=== PATIENT | female | born 1995 | race Caucasian/White ===

== ENCOUNTER 2018-03-27 08:04 | Inpatient (IN) | END 2018-03-29 21:50 | disposition home or self-care (01) | DRG 769 ==

== ENCOUNTER 2018-03-31 12:02 | Emergency (ER) | END 2018-03-31 13:05 | disposition home or self-care (01) ==

== ENCOUNTER 2018-09-03 05:55 | Inpatient (IN) | payer OTHER ==
[~2018-09-03] VITALS: Ht 154.9 cm; Wt 76.6 kg
[~2018-09-03 05:55] MED LIST: PREN-19 PO
[2018-09-03] MEDS ORDERED: LACTATED RINGER'S 1,000 ML IV SCH (06:55)
[2018-09-03 06:56] VITALS: Ht 154.9 cm; Wt 76.6 kg
[2018-09-03] MEDS ORDERED: CARBOPROST 250 MCG INJ IM PRN ×2 (07:00→07:30)
[2018-09-03] MEDS ORDERED: BUTORPHANOL 2 MG INJ IV PRN ×2 (07:00→07:30)
[2018-09-03] MEDS ORDERED: LIDOCAINE 1% (MPF) 30 ML INJ INJ PRN ×2 (07:00→07:30)
[2018-09-03] MEDS ORDERED: METHYLERGONOVINE 0.2 MG INJ IM PRN ×2 (07:00→07:30)
[2018-09-03] MEDS ORDERED: OXYTOCIN 30 UNITS/LR 500 ML IV SCH ×4 (07:00→07:30)
[2018-09-03] MEDS ORDERED: MISOPROSTOL 200 MCG TAB PR PRN ×2 (07:00→07:30)
[2018-09-03] MEDS ORDERED: OXYTOCIN 30 UNITS/LR 500 ML IV PRN ×2 (07:00→07:30)
[2018-09-03] MEDS ORDERED: IBUPROFEN 600 MG TAB PO PRN ×2 (07:00→07:30)
[2018-09-03] MEDS: LACTATED RINGER'S 1,000 ML IV SCH ×3 (07:21→20:36)
[2018-09-03] MEDS: MISOPROSTOL 50 MCG CAPSULE PO SCH ×3 (10:10→20:36)
--- NOTE | 2018-09-03 22:20 | HP ---
Date/Time of Note Date/Time of Note DATE: 09/03/18 TIME: 22:17 OB - History Hx of Present Free Text/Dictation 22-year-old 2 para 0010 with single intrauterine at 39 weeks and 6 days with a MARYANN of 09/04/2018 was admitted last night for induction of labor by her primary OB. She states good movement. She denies nausea, vomiting, shortness of breath, chest pain, headache, visual changes, vaginal bleeding or LOF. Estimated Due Date: Sep 04, 2018 : 2 Para: 0 Spontaneous : 1 Therapeutic : 0 Care: Good Care Ultrasounds: Normal mid trimester US Obstetrical Complications: None Medical Complications: Musculoskeletal Past Family/Social History * Past Medical, Surgical, Family and Obstetric Histories reviewed from [facility]. Blood Type: O+ Rubella: immune RPR/VDRL: Negative GBS Status: Negative HBsAG: Negative OB Admission Exam Vital Signs Vital Signs Blood pressure 110/67, pulse rate 70/minutes, respiratory rate 16/minutes, temperature 98.6 Physical Exam HEENT: WNL Heart: Rhythm Normal Lungs: Clear Abdomen: WNL Extremities: Normal Cervical Dilatation: 1cm Effacement: 50% Station: -2 Membranes: Intact Heart Rate: 130's Accelerations: Accelerations Present Decelerations: No Decelerations Varibility: Moderate Contractions on Admission: 6-10 Minutes Apart Intensity: Mild Last 72 hours Lab Results CBC & BMP 09/03/18 07:00 OB Assessment/Plan Other plan: 22 years old 2 para 0010 with single intrauterine at 39 weeks and 6 days was admitted for induction of labor last night. She has received 2 dose of Cytotec. Will continue Cytotec per protocol. - FHR: No sign of metabolic acidosis- Category I - Continuous EFM, toco - CBC, blood type and screen as noted above - Analgesia options with R/B/A discussed in detail with patient - Epidural per patient request - Please see the orders - O+/Rubella: Immune - GBS: Negative Admission, procedures, expectations, risks and possible complications have been discussed in detail with the patient. Risk of vaginal delivery including but not limited to bleeding, infection, cervical laceration, placental retention, injury to fetus, blood transfusion, blood transfusion related infection, risk of anesthesia, adhesion, cervical laceration, episiotomy/laceration, possible delivery with risk of bleeding, infection, injury to other organs (bowel, bladder, ureter, vessels, nerves), injury to fetus, blood transfusion, blood transfusion related infection, risk of anesthesia, scar and hernia formation, needs for future , removal of uterus or any other indicated surgery discussed with the patient. She expressed understanding and repeats the risks. All of her questions were answered. She signed the informed consent. PHYSICIAN'S VERIFICATION OF INFORMED CONSENT The patient was counseled regarding the procedure, its indications, risks, potential complications and alternatives and any questions were answered. Consent was obtained. PLANNED PROCEDURE/TREATMENT: Vaginal delivery, episiotomy, repair of laceration possible delivery DAVID NUÑEZ Sep 03, 2018 22:20
--- NOTE | 2018-09-03 22:38 | PREAC ---
Date/Time of Note Date/Time of Note DATE: 09/03/18 TIME: 22:37 Anesthesia Eval and Record Evaluation Time Pre-Procedure Interview DATE: 09/03/18 TIME: 22:37 Age 22 Sex female NPO: 8 hrs Preoperative diagnosis iup at 39 weeks Planned procedure labor epidural Past Medical History Past Medical History: None Surgery & Anesthesia Issues No known issue Meds Anticoagulation: No Beta Faby within 24 hr: No Reason Beta Faby not given: Pt. not on B-Faby Reported Medications Vit #76/Iron,Carb/FA (Prenatabs Rx Tablet) 1 Each Tablet, 1 EACH PO D AILY, TAB 03/27/18 Current Medications Lactated Ringer's 1,000 ml @ 125 mls/hr Q8H IV Last administered on 09/03/18at 20:36; Admin Dose 125 MLS/HR; Start 09/03/18 at 07:30 Butorphanol Tartrate (Stadol) 2 mg Q2H PRN IV .PAIN Last administered on 09/03/18at 21:26; Admin Dose 2 MG; Start 09/03/18 at 07:30 Lidocaine (Xylocaine 1% (Mpf)) 30 ml ONCE PRN INJ .EPISIOTOMY; Start 09/03/18 at 07:30 Oxytocin/Lactated Ringer's 500 ml @ 500 mls/hr ONCE POST IV ; Start 09/03/18 at 07:30 Oxytocin/Lactated Ringer's 500 ml @ 125 mls/hr POST IV ; Start 09/03/18 at 07:30 Ibuprofen (Motrin) 600 mg ONCE PRN PO .PAIN 1-5; Start 09/03/18 at 07:30 Oxytocin/Lactated Ringer's 500 ml @ 0 mls/hr ONCE PRN IV .VAGINAL BLEEDING; Start 09/03/18 at 07:30 Methylergonovine Maleate (Methergine) 0.2 mg ONCE PRN IM .VAGINAL BLEEDING; Start 09/03/18 at 07:30 Carboprost Tromethamine (Hemabate) 250 mcg ONCE PRN IM .VAGINAL BLEEDING; Start 09/03/18 at 07:30 Misoprostol (Cytotec) 1,000 mcg ONCE PRN IL .VAGINAL BLEEDING; Start 09/03/18 at 07:30 Misoprostol (Cytotec 50 Mcg Capsule) 50 mcg Q4 PO Last administered on 09/03/18at 20:36; Admin Dose 50 MCG; Start 09/03/18 at 10:00 Meds reviewed: Yes Allergies Coded Allergies: No Known Allergies (Verified Allergy, Unknown, 03/27/18) Allergies Reviewed: Yes Labs/Studies Labs Reviewed: Reviewed by anesthesiologist Result Diagram: 09/03/18 0700 Laboratory Tests 09/03/18 07:00 Blood Bank Test 09/03/18 07:00 Antibody Screen NEGATIVE Blood Type O POSITIVE Rh Immune Globulin Candidate NO test: Positive Pre-procedure Exam Airway: Adequate mouth opening, Adequate thyromental dist Mallampati: Mallampati I Teeth: Normal Lung: Normal Heart: Normal ASA Physical Status ASA physical status: 2 Emergency: None Planned Anesthetic Neuraxial: Epidural Planned Pain Management Parenteral pain med Pre-operative Attestations Prior to commencing anesthesia and surgery, the patient was re-evaluated, there was verification of: *The patient's identity *The results of appropriate recent lab work and preoperative vital signs *The above evaluation not changing prior to induction *Anesthetic plan, risk benefits, alternative and complications discussed with patient/family; questions answered; patient/family understands, accepts and wishes to proceed. AMANDA IGLESIAS Sep 03, 2018 22:38
[2018-09-03] MEDS ORDERED: FENTAnyl 2MCG/ML-ROPIV 0.2% 100 ML ONE (22:39)
[2018-09-03] MEDS ORDERED: ONDANSETRON 4 MG INJ IV PRN (23:00)
[2018-09-03] MEDS ORDERED: DIPHENHYDRAMINE 50 MG INJ IV PRN (23:00)
[2018-09-03] MEDS ORDERED: NALOXONE (0.4 MG/ML) INJ IV PRN (23:00)
[2018-09-04] MEDS: LACTATED RINGER'S 1,000 ML IV SCH ×4 (00:05→20:04)
[2018-09-04] MEDS ORDERED: OXYTOCIN 30 UNITS/LR 500 ML IV SCH (01:30)
--- NOTE | 2018-09-04 08:21 | PAC ---
Date/Time of Note Date/Time of Note DATE: 09/04/18 TIME: 08:21 Post-Anesthesia Notes Post-Anesthesia Note Last documented vital signs temp 97.8 bp 116/76 p 76 Activity: WNL Respiratory function: WNL Cardiovascular function: WNL Mental status: Baseline Pain reasonably controlled: Yes Hydration appropriate: Yes Nausea/Vomiting absent: Yes AMANDA IGLESIAS Sep 04, 2018 08:21
[2018-09-04] MEDS: FENTAnyl 2MCG/ML-ROPIV 0.2% 100 ML BAG EPI SCH ×2 (09:08→18:06)
[2018-09-04] MEDS ORDERED: GENTAMICIN 120 MG/NS (PMX) 100 ML IVPB SCH (17:00)
[2018-09-04] MEDS ORDERED: AMPICILLIN 2 GM/NS (PMX) 100 ML IVPB ONE (17:00)
[2018-09-04] MEDS: ACETAMINOPHEN 325 MG TAB PO PRN (17:03)
[2018-09-04] MEDS: MISOPROSTOL 50 MCG CAPSULE PO SCH ×5 (20:04→21:00)
[2018-09-04] MEDS: AMPICILLIN 1 GM/NS (PMX) 50 ML IVPB SCH (21:14)
[2018-09-05] MEDS: FENTAnyl 2MCG/ML-ROPIV 0.2% 100 ML BAG EPI SCH (00:40)
[2018-09-05] MEDS: MISOPROSTOL 50 MCG CAPSULE PO SCH ×2 (01:00→05:00)
[2018-09-05] MEDS: AMPICILLIN 1 GM/NS (PMX) 50 ML IVPB SCH (01:11)
[2018-09-05] MEDS: ACETAMINOPHEN 325 MG TAB PO PRN (01:30)
[2018-09-05] MEDS: LACTATED RINGER'S 1,000 ML IV SCH (02:35)
[2018-09-05] MEDS ORDERED: MINERAL OIL LIGHT 10 ML VIAL TOP ONE (03:30)
[2018-09-05] MEDS: LACTATED RINGER'S 1,000 ML IV* SCH ×3 (05:38→21:38)
[2018-09-05] MEDS ORDERED: NA PHOSPHATE/BIPHOS 133 ML ENEMA PR PRN (06:00)
[2018-09-05] MEDS ORDERED: HYDROCODONE/APAP (5/325) TAB PO PRN ×2 (06:00)
[2018-09-05] MEDS ORDERED: BENZOCAINE 20% 56 ML SPRAY TOP PRN (06:00)
[2018-09-05] MEDS ORDERED: ONDANSETRON 4 MG INJ IV PRN (06:00)
[2018-09-05] MEDS ORDERED: DIPHENHYDRAMINE 50 MG INJ IV PRN (06:00)
[2018-09-05] MEDS ORDERED: MISOPROSTOL 200 MCG TAB PR PRN (06:00)
[2018-09-05] MEDS ORDERED: CARBOPROST 250 MCG INJ IM PRN (06:00)
[2018-09-05] MEDS ORDERED: DIPHENHYDRAMINE 25 MG CAP PO PRN (06:00)
[2018-09-05] MEDS ORDERED: DIBUCAINE 1% 30 GM OINT TOP PRN (06:00)
[2018-09-05] MEDS: IBUPROFEN 600 MG TAB PO SCH ×4 (06:00→23:32)
[2018-09-05] MEDS ORDERED: SENNA/DOCUSATE NA (8.6MG/50MG) TAB PO PRN (06:00)
[2018-09-05] MEDS ORDERED: MAGNESIUM HYDROXIDE 30ML CUP PO PRN (06:00)
[2018-09-05] MEDS ORDERED: OXYTOCIN 30 UNITS/LR 500 ML IV PRN (06:00)
[2018-09-05] MEDS ORDERED: ONDANSETRON 4 MG TAB PO PRN (06:00)
[2018-09-05] MEDS ORDERED: LANOLIN HPA 1 PKT TOP PRN (06:00)
--- NOTE | 2018-09-05 06:00 | LDN ---
Date/Time of Note Date/Time of Note DATE: 09/05/18 TIME: 05:48 Delivery Summary I was back up to Laborist. Laborist needed to perform delivery on a different patient.I was called to come and assist in delivery. While the delivery was in progress, RN requested a physician to go out of operating room and attend delivery for Blanca Crespo. I left the operating. Blanca was very close to . a few minutes later she delivered a viable female infant. APGARS not available to me yet. there was thick meconium. we already had the RN & cook relief & RT in the room. Immediately after I clamped and cut the cord. baby was placed on the warmer by RN. A piece of cord was double clampe d and sent for cord gasses. Vein (PH 7.256 with BE -5) & Artery (PH 7.35 with BE -4.7). Poor respiratory effort was noted and Code APGARS called. Bowling Ball Weigher And Packer was summoned. baby intubated to NICU. Placenta delivered spontaneously and intact small first degree vaginal laceration was repaired with 3-0 Vicryl. Perineum was intact EBL 300 ml Episiotomy: No Anesthesia type: Epidural Estimated blood loss: 300 Sponge & Needle done & correct: Yes All needle counts correct: Yes Any foreign bodies felt in the: No Delivery Information Sex Infant Sex: female Suctioning Nose & mouth suctioned at cyndee: No Umbilical Cord Umbilical cord with: 3 Vessels Cord presentations: no nuchal cord Nuchal cord present X: 0 Cord Blood was obtained: Yes Mother & Baby Disposition Disposition Mom transferred to: Other () Baby to NICU: Yes KARIN LIND MD Sep 05, 2018 05:58
[2018-09-05] MEDS: AMPICILLIN 2 GM/NS (PMX) 100 ML IVPB SCH ×3 (06:19→17:30)
[2018-09-05] MEDS: GENTAMICIN 120 MG/NS (PMX) 100 ML IVPB SCH ×3 (07:42→22:56)
[2018-09-05] MEDS: SENNA/DOCUSATE NA (8.6MG/50MG) TAB PO SCH ×2 (09:00→20:48)
[2018-09-05 11:11] VITALS: BP 91/53; PULSE 89; RESP 19
[2018-09-05 13:45] VITALS: BP 114/70; PULSE 90; RESP 18
[2018-09-05] MEDS: WITCH HAZEL/GLYCERIN PAD PR PRN (14:55)
[2018-09-05 15:28] VITALS: BP 121/64; PULSE 85; RESP 18
[2018-09-05 19:30] VITALS: BP 105/52; PULSE 95; RESP 18
[2018-09-06 01:00] VITALS: BP 108/65; PULSE 75; RESP 18
[2018-09-06] MEDS: AMPICILLIN 2 GM/NS (PMX) 100 ML IVPB SCH ×2 (01:34→06:41)
[2018-09-06 04:15] VITALS: BP 113/72; PULSE 80; RESP 18
[2018-09-06] MEDS: IBUPROFEN 600 MG TAB PO SCH ×3 (05:35→18:17)
[2018-09-06] MEDS: GENTAMICIN 120 MG/NS (PMX) 100 ML IVPB SCH (05:35)
[2018-09-06 08:00] VITALS: BP 97/52; PULSE 83; RESP 16
[2018-09-06] MEDS: SENNA/DOCUSATE NA (8.6MG/50MG) TAB PO SCH ×2 (09:17→21:00)
[2018-09-06] MEDS: WITCH HAZEL/GLYCERIN PAD PR PRN (14:41)
[2018-09-06 16:00] VITALS: BP 115/78; RESP 16
[2018-09-07] MEDS: IBUPROFEN 600 MG TAB PO SCH ×4 (00:08→18:00)
[2018-09-07 04:00] VITALS: BP 115/78; PULSE 71; RESP 20
[2018-09-07 08:30] VITALS: BP 123/79; PULSE 81; RESP 17
[2018-09-07] MEDS: SENNA/DOCUSATE NA (8.6MG/50MG) TAB PO SCH (08:41)
[2018-09-07] MEDS ORDERED: MEASLES,MUMPS,RUBELLA VACCINE INJ SC* ONE (09:00)
[2018-09-07] MEDS ORDERED: DIPHTH/TET/ACEL PERTUSS (ADULT) 0.5 ML VIAL IM* ONE (09:00)
[2018-09-07] MEDS ORDERED: VARICELLA VACCINE LIVE/PF 1,350 UNIT/0.5 ML ML SC* ONE (09:00)
--- NOTE | 2018-09-07 09:01 | DS ---
Date/Time of Note Date/Time of Note DATE: 09/07/18 TIME: 08:59 Obstetrical Discharge Record Final Diagnosis Final Diagnosis: Term delivered Vaginal Delivery Obstetrical Delivery: Spontaneous, Laceration, Repaired Complications Complications: less than 7 at 5 mins, less than 4 at 1 mins, Meconium Complications Augmentation: Yes Induction: Yes Rupture of Membranes: No Condition on Discharge Physical Assessment Last Vitals: T=98.0 BP 115/78 Voiding: Yes Bowel Movement: Yes Breast: Soft, non-tender Fundus: Firm Episiotomy: Laceration intact. Calf Tenderness: No Patient Condition: Good AMISH WHITLOCK MD Sep 07, 2018 09:01
--- NOTE | 2018-09-07 09:02 | PD.PPDC ---
DRYWALL APPLICATION SUPERVISOR Discharge Instruction Condition [id number] Patient Condition: [id number] Good Diet [id number] Diet: Lwnoz3d Resume Regular Diet Activity/Restrictions [id number] Activity: [id number] Normal Activity May Shower [id number] Restrictions: [id number] No Sexual Activity Nothing in the Vagina No [place] No Tampons, douche Follow-up Follow-up with Physician: 6, Week/Weeks Return to clinic for [id number] NEON SIGN ERECTOR Instructions: [id number] Fever greater than 101 Chills Worsening abdominal pain Excessive Vaginal Bleeding [id number] OB Instructions: Cldeq1r Breast Tenderness Depression AMISH WHITLOCK MD Sep 07, 2018 09:02
[2018-09-07 15:55] VITALS: BP 117/66; PULSE 80; RESP 18
[2018-09-07] MEDS: WITCH HAZEL/GLYCERIN PAD PR PRN (15:59)
--- NOTE | 2018-09-08 18:43 | DELSUM ---
Delivery Summary A-C Datetime Report Generated by CPN: 09/08/2018 18:43 DELIVERY PERSONNEL Certified Medical Aide: Jordan, Jocelyn MATERNAL INFORMATION Delivery Anesthesia: Epidural Medications in Delivery: 30 UNITS PITOCIN Delivery QBL (ml): 200 Placenta Cultured: Yes Maternal Complications: Maternal Fever Other Maternal Complications: OVARIAN CYST REMOVAL AT 17 WEEKS OF THIS LABOR SUMMARY EDC: 09/04/2018 00:00 No. Babies in Womb: 1 Attempted: No Labor Anesthesia: Epidural LABOR INFORMATION Reason for Induction: Other Reason for Induction- Other: ELECTIVE Onset of Labor: 09/03/2018 01:40 Complete Dilatation: 09/05/2018 01:42 Cervical Ripening Agents: Cytotec @ Oxytocin: Induction Group B Beta Strep: Negative Antibiotics # of Doses: 4 FOR MATERNAL TEMP DURING LABOR Antibiotics Time of Last Dose: 09/04/2018 18:11 Steroids Given: None Reason Steroids Not Administered: Not Applicable MEMBRANES Membranes Rupture Method: Artificial Rupture of Membranes: 09/04/2018 09:45 Length of Rupture (hr): 19.12 Amniotic Fluid Color: Heavy Meconium Amniotic Fluid Amount: Large Amniotic Fluid Odor: None STAGES OF LABOR Stage 1 hr: 48 Stage 1 min: 2 Stage 2 hr: 3 Stage 2 min: 10 Stage 3 hr: 0 Stage 3 min: 7 Total Time in Labor hr: 51 Total Time in Labor min: 19 VAGINAL DELIVERY Episiotomy: None Laceration Extension: First Degree Laceration Type: Perineal Laceration Repair: Yes Initial Vag Sponge Count: 10 Final Vag Sponge Count: 10 Initial Vag Sharps Count: 1+1+1 Final Vag Sharps Count: 3 Sponge Count Correct: Yes; Vaginal Sweep Performed Sharps Count Correct: Yes BABY A INFORMATION Delivery Date/Time: 09/05/2018 04:52 Method of Delivery: Vaginal Born in Route : No : N/A Forceps: N/A Vacuum Extraction: N/A Shoulder Dystocia : No SHOULDER DYSTOCIA BABY A Delivery Date/Time: 09/05/2018 04:52 PRESENTATION/POSITION BABY A Presentation: Cephalic Cephalic Presentation: Vertex Breech Presentation: N/A PLACENTA INFORMATION BABY A Placenta Delivery Time : 09/05/2018 04:59 Placenta Method of Delivery: Expressed Placenta Status: Delivered SCORES BABY A Heart Rate 1 min: Slow, Below 100 bpm Resp Effort 1 min: Absent Reflex Irritability 1 min: No Response Muscle Tone 1 min: Flaccid Color 1 min: Blue/Pale SCORE 1 MIN: 1 Heart Rate 5 min: >100 bpm Resp Effort 5 min: Slow, Irregular Reflex Irritability 5 min: [place] Muscle Tone 5 min: Some Flexion of Extrem Color 5 min: Body [place], Extremit Blue SCORE 5 MIN: 6 Heart Rate 10 min: >100 bpm Resp Effort 10 min: Good Cry Reflex Irritability 10 min: Cough/Sneeze/Pulls Away Muscle Tone 10 min: Active Motion Color 10 min: Blue/Pale Resuscitation Effort 10 min: Tactile Stimulation SCORE 10 MIN: 8 Heart Rate 15 min: >100 bpm Resp Effort 15 min: Good Cry Reflex Irritability 15 min: Cough/Sneeze/Pulls Away Muscle Tone 15 min: Active Motion Color 15 min: Body [place], Extremit Blue SCORE 15 MIN: 9 INFANT INFORMATION BABY A Gestational Age at Delivery: 40.1 Gestational Status: Full Term- 39- 40.6 Weeks Outcome : Liveborn Condition : Fair Sex: Female IDENTIFICATION/MEDS BABY A ID Band Number: [id number] Sensor Applied: No Sensor Number: [id number] Vitamin K Given : Not Given Erythromycin Given: Not Given WEIGHT/LENGTH BABY A Infant Birthweight (gm): 3525 Infant Weight (lb): 7 Weight (oz): 12 Length (in): 21.50 Length (cm): 54.61 CORD INFORMATION BABY A No. Cord Vessels: 3 Nuchal Cord : N/A Cord Blood Taken: Yes Infant Suction: Mouth; Nose ASSESSMENT BABY A Complications: Multiple Late Decels; Multiple Variable Decels; Meconium Physical Findings at Delivery: [place] Su[place]ane[place] Senior Product Marketing Manager/ALS Called : Yes Infant Care By: NICU TEAM Transferred To: NICU
== END 2018-09-07 18:18 | disposition home or self-care (01) | DRG 807 ==
LOC: L-D 05:55 → PP1 09-05 13:47
PROVIDERS: ADMIT Obstetrics & Gynecology; ATTEND Obstetrics & Gynecology
PROC: 10E0XZZ Delivery of Products of Conception, External Approach (ICD-10-PCS; principal; 2018-09-05)
PROC: 0HQ9XZZ Repair Perineum Skin, External Approach (ICD-10-PCS; 2018-09-05)
DX: O77.0 Labor and delivery complicated by meconium in amniotic fluid (principal); Z37.0 Single live birth; O70.0 First degree perineal laceration during delivery; Z3A.39 39 weeks gestation of pregnancy
CPT/HCPCS: 36415; 36600; 76815; 82803; 85025; 85610; 85730; 86592; 86850; 86900; 86901; 87340; 88307; 90716; 99464; J0290; J0595; J1580; J2405; J2590; J3010; J7120